=== PATIENT | female | born 1960 | race African-American/Black ===

== ENCOUNTER 2022-07-07 13:31 | Emergency (ER) | payer SELFPAY ==
[~2022-07-07] VITALS: Ht 167.6 cm; Wt 109.8 kg
[2022-07-07 14:24] LABS: BASOPHILS % 0.6 % (0.0-1.0); EOSINOPHILS # (AUTO) 0.1 (0.0-0.4); HEMATOCRIT 47.6 % (34.2-44.1); HEMOGLOBIN 14.8 g/dL (12.0-16.0); LYMPHOCYTES # (AUTO) 2.1 (1.0-3.2); LYMPHOCYTES % 30.2 % (18.0-39.1); MEAN CORPUSCULAR HEMOGLOBIN 28.2 pg (28-32); MEAN CORPUSCULAR HGB CONC 31.1 g/dL (31-35); MEAN CORPUSCULAR VOLUME 90.7 fL (81-99); MONOCYTES # (AUTO) 0.4 (0.2-0.8); NEUTROPHILS # (AUTO) 4.4 (2.1-6.9); NEUTROPHILS % 61.9 % (38.7-80.0); PLATELET COUNT 275 x10e3/uL (140-360); RED BLOOD COUNT 5.25 x10e6/uL (3.6-5.1); RED CELL DISTRIBUTION WIDTH 13.2 % (11.7-14.4)
[2022-07-07 15:27] LABS: ALBUMIN 4.1 g/dL (3.5-5.0); ALBUMIN/GLOBULIN RATIO 0.9 (0.8-2.0); ANION GAP 16.6 mmol/L (8-16); CALCIUM 9.9 mg/dL (8.4-10.2); CREATININE, SERUM 0.95 mg/dL (0.57-1.11); POTASSIUM 3.6 mmol/L (3.5-5.1)
[2022-07-07 15:34] LABS: CREATINE KINASE MB 0.5 ng/mL (0-5.0)
[2022-07-07 16:27] VITALS: BP 169/66
== END 2022-07-07 16:28 | disposition home or self-care (01) ==
LOC: ER 14:06
DX: I10 Essential (primary) hypertension (principal); R50.9 Fever, unspecified; R51.9 Headache, unspecified; E78.5 Hyperlipidemia, unspecified; F41.9 Anxiety disorder, unspecified; J45.909 Unspecified asthma, uncomplicated
CPT/HCPCS: 36415; 70450; 80053; 82550; 82553; 84484; 85025; 93005; 99284

== ENCOUNTER 2022-12-12 16:52 | Emergency (ER) | payer SELFPAY ==
[~2022-12-12] VITALS: Ht 167.6 cm; Wt 109.8 kg
[2022-12-12] MEDS ORDERED: TRAMADOL HCL 50 MG TAB PO ONE (18:00)
[2022-12-12] MEDS ORDERED: ULTRAM 50MG50 MG PO (18:04)
[2022-12-12] MEDS ORDERED: ANAPROX DS550 MG PO (18:05)
[2022-12-12 18:08] VITALS: O2SAT 99
== END 2022-12-12 18:52 | disposition home or self-care (01) ==
LOC: ER 17:05
DX: S76.811A Strain of other specified muscles, fascia and tendons at thigh level, right thigh, initial encounter (principal); X50.1XXA Overexertion from prolonged static or awkward postures, initial encounter; Y92.89 Other specified places as the place of occurrence of the external cause; I10 Essential (primary) hypertension; E78.5 Hyperlipidemia, unspecified; F41.9 Anxiety disorder, unspecified; J45.909 Unspecified asthma, uncomplicated
CPT/HCPCS: 99282